=== PATIENT | female | born 1985 | race Caucasian/White ===

== ENCOUNTER → 2024-05-11 15:31 | Outpatient (REF) | payer OTHER, SELFPAY | LOC: RAD 15:31 | PROVIDERS: ATTENDING PHYSICIAN Obstetrics & Gynecology; FAMILY PHYSICIAN Family Medicine | DX: O26.859 Spotting complicating pregnancy, unspecified trimester (principal) | CPT/HCPCS: 76801 ==

== ENCOUNTER → 2024-05-28 13:48 | Outpatient (REF) | payer OTHER, SELFPAY | LOC: RAD 13:48 | PROVIDERS: ATTENDING PHYSICIAN Student in an Organized Health Care Education/Training Program; FAMILY PHYSICIAN Family Medicine | DX: O26.859 Spotting complicating pregnancy, unspecified trimester (principal) | CPT/HCPCS: 76801; 76817 ==

== ENCOUNTER → 2024-07-13 11:06 | Outpatient (REF) | payer OTHER, SELFPAY | LOC: PNTC 11:06 | PROVIDERS: ATTENDING PHYSICIAN Obstetrics & Gynecology | DX: O09.512 Supervision of elderly primigravida, second trimester (principal) | CPT/HCPCS: 36415; 86850; 86900; 86901; 96372; J2790 ==

== ENCOUNTER → 2024-07-20 08:01 | Outpatient (REF) | payer OTHER, SELFPAY | LOC: HWRAD 08:01 | PROVIDERS: ATTENDING PHYSICIAN Obstetrics & Gynecology; FAMILY PHYSICIAN Family Medicine | DX: D25.9 Leiomyoma of uterus, unspecified (principal) | CPT/HCPCS: 76830; 76856 ==

== ENCOUNTER → 2024-10-14 10:22 | Outpatient (REF) | payer BC, SELFPAY | LOC: PNTC 10:22 | PROVIDERS: ATTENDING PHYSICIAN Student in an Organized Health Care Education/Training Program | DX: Z34.03 Encounter for supervision of normal first pregnancy, third trimester (principal) | CPT/HCPCS: 36415; 86850; 86870; 86900; 86901; 96372; J2790 ==

== ENCOUNTER → 2024-10-23 09:22 | Outpatient (REF) | payer BC, SELFPAY ==
--- NOTE | 2024-10-23 08:12 | PN.DIAED06 ---
Meal Plan - Gestational
- Breakfast
Gestational Diabetes Meal Plan Name: 2000 calories
Breakfast - Total Carbohydrate (grams): 45
Breakfast - Starch Carbohydrate: 2
Breakfast - Fruit Carbohydrate: 0
Breakfast - Milk Carbohydrate: 1
Breakfast - Nonstarchy Vegetables: Yes
Breakfast - Meat/Protein: 1
Breakfast - Fat: 2
- Morning Snack
Morning Snack - Total Carbohydrate (grams): 30
Morning Snack - Starch Carbohydrate: 1
Morning Snack - Fruit Carbohydrate: 0
Morning Snack - Milk Carbohydrate: 1
Morning Snack - Nonstarchy Vegetables: Yes
Morning Snack - Meat/Protein: 0
Morning Snack - Fat: 0
- Lunch
Lunch - Total Carbohydrate (grams): 45
Lunch - Starch Carbohydrate: 1
Lunch - Fruit Carbohydrate: 1
Lunch - Milk Carbohydrate: 1
Lunch - Nonstarchy Vegetables: Yes
Lunch - Meat/Protein: 2
Lunch - Fat: 2
- Afternoon Snack
Afternoon Snack - Total Carbohydrate (grams): 30
Afternoon Snack - Starch Carbohydrate: 1
Afternoon Snack - Fruit Carbohydrate: 1
Afternoon Snack - Milk Carbohydrate: 0
Afternoon Snack - Nonstarchy Vegetables: Yes
Afternoon Snack - Meat/Protein: 1
Afternoon Snack - Fat: 0
- Dinner
Dinner - Total Carbohydrate (grams): 45
Dinner - Starch Carbohydrate: 2
Dinner - Fruit Carbohydrate: 1
Dinner - Milk Carbohydrate: 0
Dinner - Nonstarchy Vegetables: Yes
Dinner - Meat/Protein: 2
Dinner - Fat: 2
- Evening Snack
Evening Snack - Total Carbohydrate (grams): 45
Evening Snack - Starch Carbohydrate: 1
Evening Snack - Fruit Carbohydrate: 1
Evening Snack - Milk Carbohydrate: 1
Evening Snack - Nonstarchy Vegetables: Yes
Evening Snack - Meat/Protein: 1
Evening Snack - Fat: 0
--- NOTE | 2024-10-23 10:38 | PN.DE ---
Diabetes Education
- -
10/23/2024 GESTATIONAL DIABETES CONSULT
Met with Ms. Wilkes today, currently at 30 weeks of gestation, here today for medical nutrition therapy. SCOTT is 01/[birth year]25
Explained glucose metabolism in body and what occurs during to cause increase blood sugar. Discussed importance of keeping BS well controlled to avoid complications to the baby during and after (macrosomia, hypoglycemia).
Discussed macronutrients, provided with 2000 jose GDM meal plan, she has a good understanding of healthy nutrition and has been eating healthy since finding out that she has GDM with this . She has been eating a higher protein diet,
encouraged her to use specific meal plan for glucose control and nutrients for baby.
Discussed physical activity, however, she is currently not exercising and was encouraged to start exercising by taking a walk daily. She was receptive to the idea and stated that she would make the effort to start exercising.
Carlotta presented to the appointment with preferred glucometer brands per her insurance company: Contour Next, One Touch or Dexcom G5 CGM. She does not want a CGM at this time, feels she will get too obsessed with her numbers. She made appointment
with us yesterday and did not have the information available prior to the appointment. I provided Carlotta with a Contour Next glucometer, educated Carlotta on proper testing technique, testing sites and testing pattern. She completed a self
demonstration, glucose was 163 (and just ate prior to appt). She is aware to test FBS and 2 hr pp each meal. Expected results for FBS <95 mg/dl and 2 hr pp <120 mg/dl. Log sheet provided for her to record results, she will send a 4-day meal log
with all her FBG and 2hr Post prandial glucose numbers to this office for review. In addition, she will send all her glucose readings to [facility] every week starting next week.
She was encouraged to reach out with questions or concerns with meal plan and if should she require insulin.
--- NOTE | 2024-10-26 09:26 | PTCARENOTE ---
10/26/2024 GESTATIONAL DIABETES EDUCATION
I responded to email from Carlotta, asking for further clarification on protein recommendations for GSD meal plan.
I confirmed that she did receive a GSD meal plan and at 2000 calories per day the ADA recommendations are 7 ounces of protein throughout the day.
Your meal plan has 7 ounces of protein per day, �which equals 198 grams of protein. �
(1 ounce = 28.35 grams)
The protein goals (71 grams at a minimum) �as Kendrick mentioned are sufficient for gestational diabetes.
It is important to have a balanced meal plan, with eating every 2-3 hours to maintain blood sugar levels.
Too much protein and not enough carbohydrates could lead to glucose going low and then rebounding high. This is a physiologic mechanism that occurs in response to low glucose.
We want to try and avoid higher blood sugars to keep the baby from growing too big (macrosomia).The pereira is to eat a very balanced meal plan (as given) with the 3 meals and 3 snacks including vegetables, protein and carbohydrates. She acknowledged
understanding. Also confirmed that test strips and lancets have been ordered to her pharmacy.
����
== END ==
LOC: DES 09:22
PROVIDERS: ATTENDING PHYSICIAN Obstetrics & Gynecology
DX: O24.419 Gestational diabetes mellitus in pregnancy, unspecified control (principal)
CPT/HCPCS: 99078

== ENCOUNTER → 2024-11-19 13:20 | Outpatient (REF) | payer BC, SELFPAY | LOC: PNTC 13:20 | PROVIDERS: ATTENDING PHYSICIAN Obstetrics & Gynecology | DX: O24.419 Gestational diabetes mellitus in pregnancy, unspecified control (principal) | CPT/HCPCS: 59025; 76816 ==

== ENCOUNTER → 2024-11-26 10:24 | Outpatient (REF) | payer BC, SELFPAY | LOC: PNTC 10:24 | PROVIDERS: ATTENDING PHYSICIAN Obstetrics & Gynecology | DX: O24.419 Gestational diabetes mellitus in pregnancy, unspecified control (principal) | CPT/HCPCS: 59025; 76815 ==

== ENCOUNTER → 2024-12-03 10:21 | Outpatient (REF) | payer BC, SELFPAY | LOC: PNTC 10:21 | PROVIDERS: ATTENDING PHYSICIAN Obstetrics & Gynecology | DX: O24.419 Gestational diabetes mellitus in pregnancy, unspecified control (principal) | CPT/HCPCS: 59025; 76815 ==

== ENCOUNTER → 2024-12-10 10:51 | Outpatient (REF) | payer BC, SELFPAY | LOC: PNTC 10:51 | PROVIDERS: ATTENDING PHYSICIAN Obstetrics & Gynecology | DX: O24.419 Gestational diabetes mellitus in pregnancy, unspecified control (principal) | CPT/HCPCS: 59025; 76815 ==

== ENCOUNTER → 2024-12-17 10:57 | Outpatient (REF) | payer BC, SELFPAY | LOC: PNTC 10:57 | PROVIDERS: ATTENDING PHYSICIAN Obstetrics & Gynecology | DX: O24.419 Gestational diabetes mellitus in pregnancy, unspecified control (principal) | CPT/HCPCS: 59025; 76816 ==

== ENCOUNTER → 2024-12-18 11:35 | Outpatient (REF) | payer BC, SELFPAY ==
--- NOTE | 2024-12-18 11:57 | PN.DE ---
Diabetes Education
- -
12/18/2024 GESTATIONAL DIABETES CONSULT
12/18/2024 Met with Carlotta, she has been prescribed Humulin N 4 units at night. I provided a demonstration on proper insulin injection technique, discuss site rotation, reviewed proper storage and disposal (of needle). She provided a successful
repeat demonstration. She did not receive an order for pen needles, provided samples of 20 each. Stated I will contact our department to request order for pen needles if she should need additional needles.
She states her post meal glucose has been WNL , she has since changed her night time snack to cheese and glucose has been between 93 - 95 and may have an occasional higher reading. Her SCOTT is 12/03/2024, states her baby was trending high in weight
but is now at 51%.
She will contact the office with any further questions or concerns.
== END ==
LOC: DES 11:35
PROVIDERS: ATTENDING PHYSICIAN Obstetrics & Gynecology Maternal & Fetal Medicine
DX: O24.419 Gestational diabetes mellitus in pregnancy, unspecified control (principal)
CPT/HCPCS: 99078

== ENCOUNTER 2024-12-21 00:35 | Inpatient (IN) | payer BC, SELFPAY ==
[2024-12-21 00:44] VITALS: BMI 35.3
[2024-12-21 01:04] LABS: Glucose - Point of Care 120 mg/dl (70-99)
[2024-12-21] MEDS: LR 1000 IV ×3 (01:05→10:03)
[2024-12-21 01:15] VITALS: BP 136/84
[2024-12-21 01:23] LABS: % Basophils 0.4 % (0-2); % Lymphocytes 24.2 % (20.5-51.1); % Monocytes 8.7 % (1.7-9.3); % Neutrophils 64.7 % (42.2-75.2); Absolute Eosinophils 0.1 10^3/uL (0-0.7); Absolute Immature Granulocytes 0.1 10^3/uL (0-0.05); Absolute Lymphocytes 2.7 10^3/uL (1.2-3.4); Absolute Neutrophils 7.2 10^3/uL (1.4-6.5); Hematocrit 31.4 % (37.0-47.0); Hemoglobin 10.7 g/dL (12.0-16.0); Mean Corp Hgb Conc. 34.1 g/dL (33.0-37.0); Mean Corpuscular Hgb 29.6 pg (27.0-31.0); Mean Corpuscular Volume 86.7 fL (81.0-99.0); Mean Platelet Volume 10.3 fL (7.4-10.4); Nucleated Red Blood Cells % 0 %; Platelet Count 329 10^3/uL (130-400); Red Blood Cell Count 3.62 10^6/uL (4.20-5.40); Red Cell Dist. Width 14.2 % (11.5-14.5); White Blood Cell Count 11.1 10^3/uL (4.8-10.8)
[2024-12-21] MEDS: VANCOCIN 540 MG IV ×3 (01:31→17:40)
[2024-12-21 01:37] LABS: ALT (SGPT) 15 U/L (0-35); AST (SGOT) 20 U/L (14-36); Alkaline Phosphatase 142 U/L (38-126); Blood Urea Nitrogen 15 mg/dl (7-17); Calcium 9.8 mg/dl (8.4-10.2); Carbon Dioxide 20 mmol/L (22-30); Chloride 108 mmol/L (98-107); Estimated Creatinine Clearance > 125 ml/min; Glucose 110 mg/dl (70-99); Potassium 4.2 mmol/L (3.5-5.1); Sodium 136 mmol/L (135-145); Total Bilirubin 0.3 mg/dl (0.2-1.3); Total Protein 7.1 g/dl (6.3-8.2); eGFR > 60.00
[2024-12-21] MEDS: SUBLIMAZE 100 MCG EPIDURAL (02:15)
[2024-12-21] MEDS: FENTANYL/BUPIVACAINE 100 EPIDURAL ×3 (02:15→15:30)
[2024-12-21 03:03] LABS: Glucose - Point of Care 132 mg/dl (70-99)
[2024-12-21] MEDS: NOVOLIN R INSULIN INFUSION 100 IV (03:21)
[2024-12-21 04:17] LABS: Glucose - Point of Care 100 mg/dl (70-99)
[2024-12-21 06:10] LABS: Glucose - Point of Care 99 mg/dl (70-99)
[2024-12-21 07:55] LABS: Glucose - Point of Care 103 mg/dl (70-99)
[2024-12-21 10:10] LABS: Glucose - Point of Care 99 mg/dl (70-99)
[2024-12-21] MEDS: PITOCIN 30 UNITS/NSS 500 ML IV (10:15)
[2024-12-21 12:02] LABS: Glucose - Point of Care 84 mg/dl (70-99)
[2024-12-21 14:04] LABS: Glucose - Point of Care 85 mg/dl (70-99)
[2024-12-21 16:03] LABS: Glucose - Point of Care 76 mg/dl (70-99)
[2024-12-21] MEDS: MOTRIN 600 MG PO (21:27)
[2024-12-22 05:26] LABS: Hematocrit 26.5 % (37.0-47.0); Hemoglobin 8.9 g/dL (12.0-16.0)
[2024-12-22] MEDS: MOTRIN 600 MG PO ×2 (06:35→18:42)
[2024-12-22] MEDS: FEOSOL 325 MG PO (07:55)
[2024-12-22] MEDS: SENOKOT-S 1 TABLET PO (07:55)
[2024-12-22] MEDS: PRENATAL PLUS 1 TABLET PO (07:55)
[2024-12-22] MEDS: RHOGAM 300 MCG IM (11:12)
[2024-12-22] MEDS: TYLENOL 650 MG PO (11:13)
[2024-12-22 13:07] LABS: Syphilis/T. pallidum Ab Reflex Negative (Negative)
[2024-12-23] MEDS: PRENATAL PLUS 1 TABLET PO (09:29)
[2024-12-23] MEDS: MOTRIN 600 MG PO (09:29)
[2024-12-23] MEDS: FEOSOL 325 MG PO (09:29)
[2024-12-23] MEDS: SENOKOT-S 1 TABLET PO (09:50)
== END 2024-12-23 12:39 | disposition home or self-care (01) | DRG 807 ==
LOC: LDRP 00:35
PROVIDERS: Obstetrics & Gynecology; Student in an Organized Health Care Education/Training Program; ADMITTING PHYSICIAN Obstetrics & Gynecology; FAMILY PHYSICIAN Family Medicine
PROC: 10E0XZZ Delivery of Products of Conception, External Approach (ICD-10-PCS; 2024-12-21)
PROC: 0KQM0ZZ Repair Perineum Muscle, Open Approach (ICD-10-PCS; 2024-12-21)
PROC: 3E0234Z Introduction of Serum, Toxoid and Vaccine into Muscle, Percutaneous Approach (ICD-10-PCS; 2024-12-22)
DX: O42.02 Full-term premature rupture of membranes, onset of labor within 24 hours of rupture (principal); Z37.0 Single live birth; Z3A.38 38 weeks gestation of pregnancy; O70.1 Second degree perineal laceration during delivery; O99.02 Anemia complicating childbirth; D64.9 Anemia, unspecified; O24.424 Gestational diabetes mellitus in childbirth, insulin controlled; O34.13 Maternal care for benign tumor of corpus uteri, third trimester; D25.9 Leiomyoma of uterus, unspecified; O99.824 Streptococcus B carrier state complicating childbirth; O99.214 Obesity complicating childbirth; Z88.0 Allergy status to penicillin; Z14.8 Genetic carrier of other disease
CPT/HCPCS: 88307; 80053; 82962; 85014; 85018; 85025; 85461; 86780; 86850; 86900; 86901; J2790